=== PATIENT | female | born 1995 | race Caucasian/White ===

== ENCOUNTER 2020-09-24 20:55 | Emergency (ER) | payer MEDICAID ==
[2020-09-25 00:06] LABS: Basophils % (Auto) 0.4 % (0.0-1.8); Eosinophils # (Auto) 0.1 K/mm3 (0.0-0.4); Hematocrit 35.8 % (30.3-42.9); Hemoglobin 12.9 gm/dl (10.1-14.3); Lymphocytes # (Auto) 1.9 K/mm3 (1.2-5.4); Lymphocytes % (Auto) 18.8 % (13.4-35.0); Mean Corpuscular HGB Conc 36 % (30-34); Mean Corpuscular Volume 82 fl (79-97); Monocytes # (Auto) 0.6 K/mm3 (0.0-0.8); Monocytes % (Auto) 5.9 % (0.0-7.3); Platelet Count 249 K/mm3 (140-440); Red Blood Count 4.38 M/mm3 (3.65-5.03); Red Cell Distribution Width 14.7 % (13.2-15.2)
[2020-09-25 01:17] LABS: Amorphous Crystals,Urine Few; Bacteria,Urine 1+ /HPF (Negative); Bilirubin,Urine NEG (Negative); Blood,Urine MOD (Negative); Color,Urine Yellow (Yellow); Mucus,Urine FEW /HPF; Protein,Urine <15 mg/dL mg/dL (Negative); Urobilinogen,Urine < 2.0 mg/dL (<2.0)
--- NOTE | 2020-09-25 03:35 | Ultrasound Report ---
EXAMINATION: Obstetrical Ultrasound INDICATION: Vaginal bleeding in early COMPARISON: None FINDINGS: There is a single, living intrauterine . [place]-rump length = 6.4 cm = 12 weeks, 5 day(s). heart rate is 153 beats per minute. The bilateral ovaries are not visualized. No free pelvic fluid is seen. IMPRESSION: 1. Single living intrauterine with details as above. Signer Name: Julianne Rosa MD Signed: 09/25/2020 3:30 AM Workstation Name: [id number]
--- NOTE | 2020-09-25 05:16 | Emergency Department Report ---
ED Female HPI - General Chief complaint: Vaginal Bleeding Stated complaint: VAGINAL BLEEDING/13 WEEKS Source: patient Mode of arrival: Ambulatory Limitations: No Limitations - History of Present Illness Initial comments: Patient is a A0 25-year-old female with no past medical history and who is approximately 14 weeks gestation presents to the ED with acute onset persistent intermittent vaginal bleeding which she describes as vaginal spotting for the last 1 week, worse in the last 12 hours. Patient states that the symptoms have been persistent and that in the last 24 hours, it has become a little more consistent site that whenever she wipes the bleeding is prominent and still spotting prominently. Patient denies abdominal pain, dysuria, urinary frequency and urgency, vaginal discharge, low back pain, chest pain, shortness of breath, fever, chills, nausea and vomiting, diarrhea, sore throat, dizziness or syncope. MD Complaint: vaginal bleeding -: Sudden, week(s) (1) Location: suprapubic, other (vaginal) Radiation: non-radiating Severity: mild Severity scale (0 -10): 2 Quality: dull Consistency: intermittent Improves with: none Worsens with: none Are you Now?: Yes (14 weeks gestation) Associated Symptoms: denies other symptoms, vaginal bleeding. denies: abdominal pain, nausea/vomiting, fever/chills, headaches, loss of appetite, dysuria, hematuria, seizure, shortness of breath, syncope, weakness - Related Data Sexually active: Yes : 9 Para: 8 A: 0 Allergies Allergy/AdvReac Type Severity Reaction Status Date / Time No Known Allergies Allergy Unverified 09/24/20 23:36 ED Review of Systems ROS: Stated complaint: VAGINAL BLEEDING/13 WEEKS Other details as noted in HPI Constitutional: denies: chills, fever Eyes: denies: eye pain, eye discharge, vision change ENT: denies: ear pain, throat pain Respiratory: denies: cough, shortness of breath, wheezing Cardiovascular: denies: chest pain, palpitations Endocrine: no symptoms reported Gastrointestinal: denies: abdominal pain, nausea, diarrhea Genitourinary: abnormal menses (Vaginal bleeding). denies: urgency, dysuria, frequency, hematuria, discharge Musculoskeletal: denies: back pain, joint swelling, arthralgia Skin: denies: rash, lesions Neurological: denies: headache, weakness, paresthesias Psychiatric: denies: anxiety, depression Hematological/Lymphatic: denies: easy bleeding, easy bruising ED Past Medical Hx - Past Medical History Previous Medical History?: Yes Hx Hypertension: Yes - Surgical History Additional Surgical History: X 2 - Social History Smoking Status: Never Smoker Substance Use Type: None ED Physical Exam - General Limitations: No Limitations General appearance: alert, in no apparent distress - Head Head exam: Present: atraumatic, normocephalic, normal inspection - Eye Eye exam: Present: normal appearance, PERRL, EOMI Pupils: Present: normal accommodation - ENT ENT exam: Present: normal exam, normal orophraynx, mucous membranes moist, TM's normal bilaterally, normal external ear exam - Neck Neck exam: Present: normal inspection, full ROM - Respiratory Respiratory exam: Present: normal lung sounds bilaterally. Absent: respiratory distress, wheezes, rales, rhonchi, chest wall tenderness, accessory muscle use, decreased breath sounds, prolonged expiratory - Cardiovascular Cardiovascular Exam: Present: regular rate, normal rhythm, normal heart sounds. Absent: systolic murmur, diastolic murmur, rubs, gallop - GI/Abdominal GI/Abdominal exam: Present: soft, normal bowel sounds. Absent: tenderness, guarding, rebound, hyperactive bowel sounds, hypoactive bowel sounds, organomegaly - Bi-manual exam: Present: other (Pelvic exam deferred, patient prefers her INSURANCE COMMISSIONER) - Extremities Exam Extremities exam: Present: normal inspection, full ROM, normal capillary refill - Back Exam Back exam: Present: normal inspection, full ROM. Absent: tenderness, CVA tenderness (R), muscle spasm, paraspinal tenderness, vertebral tenderness - Neurological Exam Neurological exam: Present: alert, oriented X3, CN II-XII intact, normal gait, reflexes normal - Psychiatric Psychiatric exam: Present: normal affect, normal mood - Skin Skin exam: Present: warm, dry, intact, normal color. Absent: rash ED Course Vital Signs 09/24/20 23:33 Temperature 97.9 F Pulse Rate 86 Respiratory 16 Rate Blood Pressure 122/77 O2 Sat by Pulse 97 Oximetry ED Medical Decision Making - Lab Data Result diagrams: 09/24/20 23:37 - Radiology Data Radiology results: report reviewed, image reviewed Findings [facility] [address] [place] [address] Ultrasound Report Signed Patient: SINDHU HARRIS MR#: [id number] : 1995 Acct:[id number] Age/Sex: 25 / F ADM Date: 09/24/20 Loc: ED Attending Dr: Ordering Physician: LAZARA SZYMNASKI III, MD Date of Service: 09/24/20 Procedure(s): US OB <= 14 wk fetus add gest Accession Number(s): [id number] cc: LAZARA SZYMANSKI III, MD EXAMINATION: Obstetrical Ultrasound INDICATION: Vaginal bleeding in early COMPARISON: None FINDINGS: There is a single, living intrauterine . [place]-rump length = 6.4 cm = 12 weeks, 5 day(s). heart rate is 153 beats per minute. The bilateral ovaries are not visualized. No free pelvic fluid is seen. IMPRESSION: 1. Single living intrauterine with details as above. Signer Name: Julianne Rosa MD Signed: 09/25/2020 3:30 AM Workstation Name: [id number] Transcribed By: EB Dictated By: Julianne Rosa MD Electronically Authenticated By: Julianne Rosa MD Signed Date/Time: 09/25/20329 DD/ 7 TD/TT: - Medical Decision Making This is a A0 25-year-old female with no past medical history and who is approximately 14 weeks gestation presents to the ED with acute onset persistent intermittent vaginal bleeding which she describes as vaginal spotting for the last 1 week, worse in the last 12 hours. Patient states that the symptoms have been persistent and that in the last 24 hours, it has become a little more consistent site that whenever she wipes the bleeding is prominent and still spotting prominently. In the ED, patient is alert and oriented x3 and is not in distress. Lab test results were reviewed and [place] [address]. Pelvic ultrasound showed a single living intrauterine of approximately 12 weeks and 5 days gestation and with heart rate of 153 bpm. Patient was discharged home and advised to maintain a complete pelvic rest and to follow-up with INSURANCE COMMISSIONER physician in 3 to 5 days for reevaluation. Patient was advised to return to the ED immediately if symptoms get worse. - Differential Diagnosis Threatened miscarriage; ovarian cyst; UTI; subchorionic bleed; fibroids Critical care attestation.: If time is entered above; I have spent that time in minutes in the direct care of this critically ill patient, excluding procedure time. ED Disposition Clinical Impression: Threatened miscarriage, Vaginal bleeding in patient at less than 20 weeks gestation Disposition: TO HOME OR SELFCARE Is pt being admited?: No Does the pt Need Aspirin: No Condition: Stable Instructions: Threatened Miscarriage, [id number], Vaginal Bleeding During , Second Trimester, [id number] Additional Instructions: Maintain a complete pelvic rest, follow-up with your INSURANCE COMMISSIONER physician in 3 to 5 days for reevaluation. Return to the ED immediately if symptoms get worse. Referrals: CABRERA ALICEA MD [Staff Physician] - 3-5 Days Time of Disposition: 05:19 Print Language: GREEK
[2020-09-25 06:15] VITALS: BP 122/72
== END 2020-09-25 06:11 | disposition home or self-care (01) ==
LOC: ED 20:55
DX: O20.0 Threatened abortion (principal); I10 Essential (primary) hypertension; Z3A.12 12 weeks gestation of pregnancy
CPT/HCPCS: 36415; 76802; 81001; 84702; 85025; 86900; 86901

== ENCOUNTER 2021-04-06 17:00 | Emergency (ER) | payer MEDICAID ==
--- NOTE | 2021-04-06 19:32 | Emergency Department Report ---
Chief Complaint: Medical Clearance Stated Complaint: INCISION OPEN Time Seen by Provider: 04/06/21 19:22 - HPI History of Present Illness: 26-year-old female patient presents with complaints of wound dehiscence today. She states she had a performed 3 weeks ago. She reports that she noticed there was a very tiny opening on the end of the incision today. She denies any drainage, redness, increased pain, swelling, or fever/chills/sweats. Patient states she continues to follow-up with her DISHWASHER. - Exam Vital Signs: Vital Signs 04/06/21 18:14 Temperature 98.1 F Pulse Rate 59 L Respiratory 18 Rate Blood Pressure 148/78 O2 Sat by Pulse 98 Oximetry MSE screening note: Focused history and physical exam performed. Due to findings the following was ordered: ED Medical Decision Making - Medical Decision Making 26-year-old female patient presents with complaints of wound dehiscence today. She states she had a performed 3 weeks ago. She reports that she noticed there was a very tiny opening on the end of the incision today. She denies any drainage, redness, increased pain, swelling, or fever/chills/sweats. Patient states she continues to follow-up with her DISHWASHER. No signs of infection or significant wound dehiscence noted on exam. Patient is well-appearing and stable for discharge home. She is to follow-up with her DISHWASHER as scheduled. Strict return precautions discussed in detail patient verbalized understanding. ED Disposition for MSE Clinical Impression: Visit for wound check Disposition: - TO HOME OR SELFCARE Condition: Stable Instructions: Sutured Wound Care ED Review of Systems ROS: Stated complaint: INCISION OPEN Other details as noted in HPI Constitutional: denies: chills, fever, malaise Skin: denies: rash, lesions, change in color Hematological/Lymphatic: denies: swollen glands ED Physical Exam - General Limitations: No Limitations General appearance: alert, in no apparent distress, obese - Head Head exam: Present: atraumatic, normocephalic - Eye Eye exam: Present: normal appearance - Respiratory Respiratory exam: Absent: respiratory distress - Cardiovascular Cardiovascular Exam: Present: regular rate - GI/Abdominal GI/Abdominal exam: Present: soft, other (Healing incision noted with very minimal superficial dehiscence noted to the left end of the wound; no redness, swelling, tenderness, or discharge noted). Absent: distended, tenderness - Neurological Exam Neurological exam: Present: alert, oriented X3, normal gait - Psychiatric Psychiatric exam: Present: normal affect, normal mood - Skin Skin exam: Present: warm, dry, normal color. Absent: rash
== END 2021-04-06 19:36 | disposition home or self-care (01) ==
LOC: ED 17:00
DX: O90.89 Other complications of the puerperium, not elsewhere classified (principal)
CPT/HCPCS: 99281

== ENCOUNTER 2021-08-23 20:03 | Emergency (ER) | payer MEDICAID ==
[2021-08-23 20:55] VITALS: BP 126/74
--- NOTE | 2021-08-23 21:46 | Emergency Department Report ---
ED Female HPI - General Chief complaint: Abdominal Pain Stated complaint: UTI Time Seen by Provider: 08/23/21 21:43 Source: patient Mode of arrival: Ambulatory Limitations: No Limitations - History of Present Illness Initial comments: Patient 26-year-old female who presents with dysuria frequency urgency x3 days. Patient denies hematuria. Denies vaginal discharge. Does endorse "Fishy Smell" Denies back pain no fever, no chills ,no nausea, no vomiting. Patient states in monogamous relationship no concern for STI. Current symptoms rated at 3/10 exacerbated by voiding. Symptoms are relieved by nothing tried. MD Complaint: dysuria - Related Data Previous Rx's Medication Instructions Recorded Last Taken Type cephALEXin [Keflex] 500 mg PO BID 3 Days #6 cap 08/23/21 Unknown Rx metroNIDAZOLE [Flagyl] 500 mg PO BID 7 Days #14 tab 08/23/21 Unknown Rx Allergies Allergy/AdvReac Type Severity Reaction Status Date / Time No Known Allergies Allergy Unverified 09/24/20 23:36 ED Review of Systems ROS: Stated complaint: UTI Other details as noted in HPI Constitutional: denies: chills, fever Eyes: denies: eye pain, eye discharge, vision change ENT: denies: ear pain, throat pain Respiratory: denies: cough, shortness of breath, wheezing Cardiovascular: denies: chest pain, palpitations Endocrine: no symptoms reported Gastrointestinal: denies: abdominal pain, nausea, vomiting Genitourinary: urgency, dysuria, frequency. denies: hematuria, discharge, abnormal menses, dyspareunia Musculoskeletal: denies: back pain, joint swelling, arthralgia Skin: denies: rash, lesions Neurological: as per HPI Psychiatric: denies: anxiety, depression Hematological/Lymphatic: denies: easy bleeding, easy bruising ED Past Medical Hx - Past Medical History Hx Hypertension: Yes - Surgical History Additional Surgical History: X 2 - Social History Smoking Status: Never Smoker - Medications Home Medications: Home Medications Medication Instructions Recorded Confirmed Last Taken Type cephALEXin [Keflex] 500 mg PO BID 3 Days #6 cap 08/23/21 Unknown Rx metroNIDAZOLE [Flagyl] 500 mg PO BID 7 Days #14 tab 08/23/21 Unknown Rx ED Physical Exam - General Limitations: No Limitations General appearance: alert, in no apparent distress - Head Head exam: Present: atraumatic, normocephalic - Eye Eye exam: Present: normal appearance, EOMI Pupils: Present: normal accommodation - ENT ENT exam: Present: mucous membranes moist - Neck Neck exam: Present: normal inspection, full ROM. Absent: tenderness - Respiratory Respiratory exam: Present: normal lung sounds bilaterally. Absent: respiratory distress, wheezes - Cardiovascular Cardiovascular Exam: Present: regular rate, normal rhythm, normal heart sounds - GI/Abdominal GI/Abdominal exam: Present: soft, normal bowel sounds. Absent: distended, tenderness, guarding, rebound, rigid, bruit, hernia - Rectal Rectal exam: Present: deferred - External exam: Present: other (deferred by patient ) - Extremities Exam Extremities exam: Present: normal inspection, full ROM. Absent: tenderness - Back Exam Back exam: Present: normal inspection, full ROM. Absent: CVA tenderness (R), CVA tenderness (L) - Neurological Exam Neurological exam: Present: alert, oriented X3, CN II-XII intact, normal gait - Psychiatric Psychiatric exam: Present: normal affect, normal mood - Skin Skin exam: Present: warm, dry, intact, normal color. Absent: rash ED Course Vital Signs 08/23/21 20:51 Temperature 98.4 F Pulse Rate 71 Respiratory 17 Rate Blood Pressure 126/74 [Right] O2 Sat by Pulse 99 Oximetry ED Medical Decision Making - Lab Data Labs 08/23/21 Unknown Urine Color Yellow Urine Turbidity Clear Urine pH 6.0 Ur Specific [place] 1.012 Urine Protein <15 mg/dl Urine Glucose (UA) Neg Urine Ketones Neg Urine Blood Neg Urine Nitrite Neg Ur Reducing Substances Not Reportable Urine Bilirubin Neg Urine Ictotest Not Reportable Urine Urobilinogen < 2.0 Ur Leukocyte Esterase Neg Urine WBC (Auto) 5.0 Urine RBC (Auto) 2.0 U Epithel Cells (Auto) 1.0 Urine Mucus Few Urine HCG, Qual Negative - Medical Decision Making UA normal no nitrites no leukocytes no WBCs mild mucus. hCG is negative. Patient declines vaginal exam. Plan patient will be DC'd home, follow-up with her care doctor in 2 to 3 days. Will hydrate as directed. Return to emergency department should symptoms worsen. Patient declines vaginal exam. Critical care attestation.: If time is entered above; I have spent that time in minutes in the direct care of this critically ill patient, excluding procedure time. ED Disposition Clinical Impression: Dysuria Disposition: HOME / SELF CARE / HOMELESS Is pt being admited?: No Does the pt Need Aspirin: No Condition: Stable Instructions: Abdominal Pain (ED), Dysuria Additional Instructions: Do not drink alcohol with this medication. . Follow-up with your primary care doctor in 2 to 3 days. Turn to emergency department if symptoms worsen. Prescriptions: metroNIDAZOLE [Flagyl] 500 mg PO BID 7 Days #14 tab cephALEXin [Keflex] 500 mg PO BID 3 Days #6 cap Referrals: YAHIR BURROUGHS JR, MD [Staff Physician] - 3-5 Days Forms: Work/School Release Form(ED) Time of Disposition: 22:28
[2021-08-23 22:03] LABS: HCG Qualitative,Urine Negative (Negative)
[2021-08-23 22:04] LABS: Bilirubin,Urine NEG (Negative); Blood,Urine NEG (Negative); Color,Urine Yellow (Yellow); Mucus,Urine FEW /HPF; Protein,Urine <15 mg/dL mg/dL (Negative); Urobilinogen,Urine < 2.0 mg/dL (<2.0)
== END 2021-08-23 22:39 | disposition home or self-care (01) ==
LOC: ED 20:03
DX: R30.0 Dysuria (principal); Z98.890 Other specified postprocedural states
CPT/HCPCS: 81001; 81025; 99283